=== PATIENT | male | born 1950 | race Caucasian/White ===

== ENCOUNTER → 2021-06-28 | Outpatient (CLI) | payer OTHER ==
--- NOTE | 2021-06-28 11:34 | 2DMMODE ---
[facility] [address] [facility] [place] [address] 2 D/M-MODE ECHOCARDIOGRAM Name: BEREKET ELLINGTONDARCIE Goldstein Room #: REG [facility]#: [id number] Admission: 06/28/21 Attend Phys: Ender Haines Discharge: Date of : 46 Report #: [id number] THIS REPORT FOR: cc: FAM - Family physician unknown FAM - Family physician unknown Tonny Johnson MD [facility] ~ APPROVED REPORT Study performed: 06/28/2021 09:42:30 EXAM: Comprehensive 2D, Doppler, and color-flow Echocardiogram Patient Location: Out-Patient Status: routine BSA: 2.36 HR: 55 bpm BP: 110/68 mmHg Rhythm: Arrhythmia Other Information Study Quality: Good Indications CAD. Hx: PCI. 2D Dimensions RVDd: 38.00 mm IVSd: 12.00 (7-11mm) LVOT Diam: 22.00 (18-24mm) LVDd: 56.00 mm PWd: 11.00 (7-11mm) Ascending Ao: 34.00 (22-36mm) LVDs: 43.00 (25-40mm) Left Atrium: 43.00 (27-40mm) Aortic Root: 36.00 mm Volumes Left Atrial Volume (Systole) Single Plane 4CH: 57.86 mL Single Plane 2CH: 59.07 mL LA ESV Index: 26.00 mL/m2 Aortic Valve AoV Peak Vince.: 2.39 m/s AO Peak Gr.: 22.94 mmHg LVOT Max P.83 mmHg AO Mean Gr.: 12.23 mmHg AO V2 Mean: 1.63 m/s LVOT Max V: 1.10 m/s [facility] [address] [address] 2 D/M-MODE ECHOCARDIOGRAM Name: VIOLETTA ELLINGTON Room #: REG [facility]#: [id number] Admission: 06/28/21 Attend Phys: Ender Saleh Discharge: Date of : 46 Report #: [id number] AO V2 VTI: 50.41 cm MONTRELL Vmax: 1.81 cm2 Mitral Valve E/A Ratio: 1.1 MV Decel. Time: 224.68 ms MV E Max Vince.: 0.88 m/s MV A Vince.: 0.78 m/s MV PHT: 65.16 ms IVRT: 64.59 ms Pulmonary Valve PV Peak Vince.: 0.92 m/s PV Peak Gr.: 3.37 mmHg Pulmonary Vein P Vein S: 0.71 m/s P Vein D: 0.55 m/s P Vein S/D Ratio: 1.29 Tricuspid Valve TR Peak Vince.: 2.50 m/s RAP Estimate: 5.00 mmHg TR Peak Gr.: 25.00 mmHg PA Pressure: 30.00 mmHg Left Ventricle The left ventricle is normal size. Regional wall motion abnormalities are noted. Mild basal septal hypertrophy is present. Left ventricular systolic function is normal. LVEF is 55-60%. Grade I - abnormal relaxation pattern. Right Ventricle The right ventricle is normal size. The right ventricular systolic function is normal. Atria The left atrium size is normal. The right atrium size is normal. Aortic Valve Aortic valve is moderately calcified. Mild aortic regurgitation. There is mild valvular aortic stenosis. Calculated aortic valve area is 1.8 cm2 with maximum pressure gradient of 23 mmHg and mean pressure gradient of 12 mmHg. Mitral Valve The mitral valve is normal in structure. Mild mitral [facility] [place] [address] 2 D/M-MODE ECHOCARDIOGRAM Name: VIOLETTA ELLINGTON Room #: REG [facility]#: [id number] Admission: 06/28/21 Attend Phys: Ender Saleh Discharge: Date of : 46 Report #: [id number] regurgitation. Tricuspid Valve The tricuspid valve is normal in structure. Trace tricuspid regurgitation. Estimated PAP is 30mmHg. Pulmonic Valve The pulmonary valve is normal in structure. Mild to moderate pulmonic regurgitation. Great Vessels The aortic root is normal in size. The ascending aorta is normal in size. IVC is normal in size and collapses >50% with inspiration. Pericardium There is no pericardial effusion. <Conclusion> Normal left ventricle size with mild basal hypertrophy Ejection fraction 60% Grade 1 diastolic dysfunction Normal atrial size Moderate aortic valve calcification Mild aortic valve stenosis aortic valve area estimated 1.8 cm/mean gradient of 18 mmHg Mild mitral annular calcification Mild mitral valve insufficiency Trace tricuspid valve insufficiency Pulmonary systolic pressure estimated 30 mmHg Normal aortic root size No pericardial effusion <ELECTRONICALLY SIGNED> By: Tonny Johnson MD, FACC 06/28/21 1134 1134 113 Tonny Johnson MD, FACC /INF
== END ==
LOC: CV 10:16
PROVIDERS: ATTEND Chiropractor
DX: I08.8 Other rheumatic multiple valve diseases (principal); I25.9 Chronic ischemic heart disease, unspecified